=== PATIENT | male | born 1945 | race Hispanic/Latino ===

== ENCOUNTER → 2025-01-27 | Outpatient (CLI) | payer OTHER, MEDICARE ==
--- NOTE | 2025-01-27 15:13 | HMCIMG ---
KNEE 3VWS LT HISTORY: Knee pain COMPARISON: None TECHNIQUE: 3 images of left knee were obtained. FINDINGS: There is no acute displaced fracture or dislocation. Vascular calcifications are seen. Degenerative changes are seen. IMPRESSION: 1. Findings as described above.
== END | disposition home or self-care (01) ==
LOC: RAH 10:46 → EDBD 10:46
PROVIDERS: ATTEND Family Medicine
DX: M17.12 Unilateral primary osteoarthritis, left knee (principal); M25.562 Pain in left knee
CPT/HCPCS: 73562